=== PATIENT | male | born 1965 ===

== ENCOUNTER 2025-06-16 15:29 | Emergency (ER) | payer SELFPAY | END 2025-06-16 18:26 | disposition home or self-care (01) | LOC: MW.ED 15:29 | DX: T81.33XA Disruption of traumatic injury wound repair, initial encounter (principal); Y83.8 Other surgical procedures as the cause of abnormal reaction of the patient, or of later complication, without mention of misadventure at the time of the procedure | CPT/HCPCS: 99282 ==